=== PATIENT | female | born 1985 | race Caucasian/White ===

== ENCOUNTER 2016-06-18 19:23 | Emergency (ER) | payer SELFPAY ==
[~2016-06-18] VITALS: Ht 170.2 cm; Wt 81.8 kg
[2016-06-18 19:29] VITALS: BP 124/74
== END 2016-06-18 21:35 | disposition left against medical advice (07) ==
LOC: EMS 19:25
DX: F41.9 Anxiety disorder, unspecified (principal); Z53.21 Procedure and treatment not carried out due to patient leaving prior to being seen by health care provider